=== PATIENT | male | born 1960 | race African-American/Black ===

== ENCOUNTER 2019-01-04 04:32 | Emergency (ER) | payer MEDICAID, OTHER ==
[~2019-01-04] VITALS: Ht 188 cm; Wt 47.6 kg
[2019-01-04] MEDS ORDERED: ALUM & MAG HYDROX-SIMETH LIQ(MAALOX) 30 ML PO ONE (05:00)
[2019-01-04 05:38] LABS: Basophils # (auto) 0 uL; Basophils % (auto) 1.1 % (0.0-2.0); Eosinophils # (auto) 0.2 uL; Eosinophils % (auto) 3.7 % (0.0-7.0); Hematocrit 39.2 % (41.0-53.0); Lymphocytes # (auto) 1.8 uL; Lymphocytes % (auto) 41.3 % (10.0-50.0); Mean Corpuscular Hemoglobin 27.9 pg (28.0-32.0); Mean Corpuscular Hgb Conc. 33.2 g/dL (32.0-36.0); Mean Corpuscular Volume 83.9 fL (80.0-100.0); Monocytes # (auto) 0.3 uL; Monocytes % (auto) 6.8 % (0.0-12.0); Neutrophils % (auto) 47.1 % (37.0-80.0); Nucleated Red Blood Cells % 0.1 %; Platelet Count (auto) 144 10^3/uL (140-450); Red Blood Cells 4.67 10^6/uL (4.5-5.90); Red Cell Distribution Width 15.7 % (11.8-14.3); White Blood Cell 4.3 10^3/uL (4.4-10.8)
[2019-01-04 05:52] LABS: Albumin 3.5 g/dL (3.4-5.0); Anion Gap 4 (5-15); Blood Urea Nitrogen 16 mg/dL (7-18); Calcium 8.3 mg/dL (8.5-10.1); Carbon Dioxide 28 mmol/L (21-32); Chloride 110 mmol/L (98-107); Glucose 106 mg/dL (74-106); Potassium 4.2 mmol/L (3.5-5.1); Sodium 142 mmol/L (136-145)
[2019-01-04 05:54] LABS: BUN/Creatinine Ratio 15.8; GFR African American 98 mL/min; GFR Non-African American 81 mL/min
[2019-01-04 05:59] LABS: Alanine Aminotransferase 126 U/L (16-61); Alkaline Phosphatase 116 U/L (45-117); Aspartate Aminotransferase 126 U/L (15-37); Bilirubin, Total 0.1 mg/dL (0.2-1.0); Total Protein 6.4 g/dL (6.4-8.2)
[2019-01-04] MEDS ORDERED: HYDROmorphone HCL 2 MG/ML VL IV ONE (08:00)
[2019-01-04] MEDS ORDERED: ONDANSETRON HCL 4 MG/2 ML VIAL IV ONE (08:00)
[2019-01-04 08:45] LABS: Basophils # (auto) 0 uL; Basophils % (auto) 1.2 % (0.0-2.0); Eosinophils # (auto) 0.1 uL; Hematocrit 39.5 % (41.0-53.0); Hemoglobin 12.9 g/dL (13.5-17.5); Lymphocytes # (auto) 1.3 uL; Lymphocytes % (auto) 37.6 % (10.0-50.0); Mean Corpuscular Hemoglobin 27.6 pg (28.0-32.0); Mean Corpuscular Hgb Conc. 32.7 g/dL (32.0-36.0); Mean Corpuscular Volume 84.3 fL (80.0-100.0); Monocytes # (auto) 0.3 uL; Monocytes % (auto) 7.6 % (0.0-12.0); Neutrophils # (auto) 1.7 uL; Neutrophils % (auto) 50.6 % (37.0-80.0); Nucleated Red Blood Cells % 0.2 %; Platelet Count (auto) 143 10^3/uL (140-450); Red Blood Cells 4.68 10^6/uL (4.5-5.90); White Blood Cell 3.4 10^3/uL (4.4-10.8)
[2019-01-04 08:54] LABS: Albumin 3.4 g/dL (3.4-5.0); BUN/Creatinine Ratio 15.6; Calcium 8.1 mg/dL (8.5-10.1); Magnesium 2.3 mg/dL (1.6-2.6); Potassium 4.6 mmol/L (3.5-5.1)
[2019-01-04 08:57] LABS: Bilirubin, Total 0.3 mg/dL (0.2-1.0); Total Protein 6.3 g/dL (6.4-8.2)
[2019-01-04 09:03] LABS: Partial Thromboplastin Time 25.9 sec (23.64-32.05)
[2019-01-04 10:03] VITALS: BP 109/80
== END 2019-01-04 10:39 | disposition home or self-care (01) ==
LOC: EDBD 04:32 → ER 04:43 → EDBD 04:43 → ER 10:39
DX: R16.1 Splenomegaly, not elsewhere classified (principal); R10.13 Epigastric pain; I10 Essential (primary) hypertension; Z95.0 Presence of cardiac pacemaker
CPT/HCPCS: 36415; 74176; 80053; 82150; 83690; 83735; 84484; 85025; 85610; 85730; 93005; 94761; 96374; 96375; 99284; J1170; J2405

== ENCOUNTER 2019-02-01 02:37 | Emergency (ER) | payer MEDICAID ==
[~2019-02-01] VITALS: Ht 193 cm; Wt 98.9 kg
[2019-02-01 03:52] LABS: Basophils # (auto) 0 uL; Basophils % (auto) 0.8 % (0.0-2.0); Eosinophils # (auto) 0.1 uL; Eosinophils % (auto) 2.7 % (0.0-7.0); Hematocrit 36.8 % (41.0-53.0); Hemoglobin 12.3 g/dL (13.5-17.5); Lymphocytes # (auto) 1.8 uL; Mean Corpuscular Hemoglobin 28.1 pg (28.0-32.0); Mean Corpuscular Hgb Conc. 33.3 g/dL (32.0-36.0); Mean Corpuscular Volume 84.2 fL (80.0-100.0); Monocytes # (auto) 0.4 uL; Monocytes % (auto) 7.5 % (0.0-12.0); Neutrophils # (auto) 2.5 uL; Nucleated Red Blood Cells % 0.1 %; Platelet Count (auto) 144 10^3/uL (140-450); Red Blood Cells 4.38 10^6/uL (4.5-5.90); Red Cell Distribution Width 16.3 % (11.8-14.3); White Blood Cell 4.9 10^3/uL (4.4-10.8)
[2019-02-01 04:15] LABS: Amylase 75 U/L (25-115); Lipase 268 U/L (73-393)
[2019-02-01 04:16] LABS: Alanine Aminotransferase 70 U/L (16-61); Albumin 3.2 g/dL (3.4-5.0); Anion Gap 5 (5-15); Aspartate Aminotransferase 37 U/L (15-37); BUN/Creatinine Ratio 13.7; Blood Urea Nitrogen 14 mg/dL (7-18); Calcium 7.7 mg/dL (8.5-10.1); Carbon Dioxide 26 mmol/L (21-32); Chloride 115 mmol/L (98-107); GFR African American 96 mL/min; GFR Non-African American 80 mL/min; Glucose 103 mg/dL (74-106); Potassium 4.3 mmol/L (3.5-5.1); Sodium 146 mmol/L (136-145)
[2019-02-01 04:21] LABS: Alkaline Phosphatase 120 U/L (45-117); Bilirubin, Total 0.2 mg/dL (0.2-1.0); Total Protein 6.1 g/dL (6.4-8.2)
[2019-02-01 05:09] LABS: Urine Bacteria FEW /hpf (None Seen); Urine Blood Negative /uL (Negative); Urine Specific Gravity 1.025 (1.001-1.035); Urine WBC 23 /hpf (0 - 3)
[2019-02-01] MEDS ORDERED: ONDANSETRON HCL 4 MG/2 ML VIAL IV ONE (07:00)
[2019-02-01] MEDS ORDERED: MORPHINE SULFATE 4 MG/ML SYR/VIAL IV ONE (07:00)
[2019-02-01] MEDS ORDERED: SODIUM CHLORIDE 0.9% 1,000 ML IV ONE (07:00)
[2019-02-01] MEDS ORDERED: DIPHENOXYLATE W/ATROPINE 2.5 MG TAB PO ONE (07:00)
[2019-02-01 07:40] VITALS: BP 124/91
[2019-02-01] MEDS ORDERED: cefTRIAXone 1GM/50ML D5W 50 ML IV ONE (08:00)
== END 2019-02-01 08:27 | disposition home or self-care (01) ==
LOC: EDBD 02:37 → ER 02:43
DX: K52.9 Noninfective gastroenteritis and colitis, unspecified (principal); N39.0 Urinary tract infection, site not specified; I10 Essential (primary) hypertension; Z95.0 Presence of cardiac pacemaker
CPT/HCPCS: 36415; 36600; 74176; 80053; 81001; 82150; 82805; 83605; 83690; 83880; 84484; 85025; 93005; 96361; 96365; 96375; 99284; J0696; J2270; J2405; J7030

== ENCOUNTER 2019-02-02 10:44 | Emergency (ER) | payer MEDICAID ==
[~2019-02-02] VITALS: Ht 193 cm; Wt 98.9 kg
[2019-02-02] MEDS ORDERED: SODIUM CHLORIDE 0.9% 500 ML IVB ONE (11:05)
[2019-02-02] MEDS ORDERED: ONDANSETRON HCL 4 MG/2 ML VIAL IV ONE (11:15)
[2019-02-02] MEDS ORDERED: HYDROmorphone HCL 2 MG/ML VL IV ONE (11:15)
[2019-02-02 11:28] LABS: Basophils # (auto) 0 uL; Eosinophils # (auto) 0.1 uL; Eosinophils % (auto) 1.2 % (0.0-7.0); Hematocrit 38.9 % (41.0-53.0); Hemoglobin 12.9 g/dL (13.5-17.5); Lymphocytes # (auto) 1.5 uL; Lymphocytes % (auto) 35.1 % (10.0-50.0); Mean Corpuscular Hgb Conc. 33.1 g/dL (32.0-36.0); Mean Corpuscular Volume 84.7 fL (80.0-100.0); Monocytes # (auto) 0.5 uL; Monocytes % (auto) 11.1 % (0.0-12.0); Neutrophils # (auto) 2.3 uL; Neutrophils % (auto) 51.6 % (37.0-80.0); Nucleated Red Blood Cells % 0.1 %; Platelet Count (auto) 147 10^3/uL (140-450); Red Blood Cells 4.59 10^6/uL (4.5-5.90); Red Cell Distribution Width 15.6 % (11.8-14.3); White Blood Cell 4.4 10^3/uL (4.4-10.8)
[2019-02-02 12:06] LABS: Albumin 3.3 g/dL (3.4-5.0); Calcium 8.3 mg/dL (8.5-10.1); Potassium 4.4 mmol/L (3.5-5.1)
[2019-02-02 12:11] LABS: BUN/Creatinine Ratio 10.4; Bilirubin, Total 0.5 mg/dL (0.2-1.0); Total Protein 6.4 g/dL (6.4-8.2)
[2019-02-02 15:13] VITALS: BP 144/92
== END 2019-02-02 15:13 | disposition home or self-care (01) ==
LOC: ER 10:44
DX: D17.9 Benign lipomatous neoplasm, unspecified (principal); F17.210 Nicotine dependence, cigarettes, uncomplicated; J45.909 Unspecified asthma, uncomplicated; I10 Essential (primary) hypertension; I25.2 Old myocardial infarction; Z95.0 Presence of cardiac pacemaker
CPT/HCPCS: 36415; 80053; 82150; 83690; 85025; 94761; 96360; 99283; J7040

== ENCOUNTER 2019-02-03 01:31 | Emergency (ER) | payer MEDICAID ==
[~2019-02-03] VITALS: Ht 190.5 cm; Wt 105.7 kg
[2019-02-03 02:34] LABS: Basophils # (auto) 0 uL; Basophils % (auto) 0.8 % (0.0-2.0); Eosinophils # (auto) 0.1 uL; Eosinophils % (auto) 1.6 % (0.0-7.0); Hematocrit 39.3 % (41.0-53.0); Hemoglobin 12.9 g/dL (13.5-17.5); Lymphocytes # (auto) 1.5 uL; Lymphocytes % (auto) 28.8 % (10.0-50.0); Mean Corpuscular Hemoglobin 27.9 pg (28.0-32.0); Mean Corpuscular Hgb Conc. 32.8 g/dL (32.0-36.0); Mean Corpuscular Volume 85.3 fL (80.0-100.0); Monocytes # (auto) 0.6 uL; Monocytes % (auto) 11.6 % (0.0-12.0); Neutrophils % (auto) 57.2 % (37.0-80.0); Nucleated Red Blood Cells % 0.2 %; Platelet Count (auto) 152 10^3/uL (140-450); Red Blood Cells 4.61 10^6/uL (4.5-5.90); Red Cell Distribution Width 15.8 % (11.8-14.3); White Blood Cell 5.2 10^3/uL (4.4-10.8)
[2019-02-03 02:42] LABS: Albumin 3.4 g/dL (3.4-5.0); BUN/Creatinine Ratio 11.5; Calcium 7.9 mg/dL (8.5-10.1); Potassium 3.9 mmol/L (3.5-5.1)
[2019-02-03 02:45] LABS: Bilirubin, Total 0.3 mg/dL (0.2-1.0); Total Protein 6.3 g/dL (6.4-8.2)
[2019-02-03 04:58] VITALS: BP 128/93
[2019-02-03 06:38] LABS: Albumin 3.4 g/dL (3.4-5.0)
[2019-02-03 06:54] LABS: Bilirubin, Direct 0.1 mg/dL (0-0.2); Bilirubin, Total 0.3 mg/dL (0.2-1.0); Total Protein 6.1 g/dL (6.4-8.2)
== END 2019-02-03 04:56 | disposition home or self-care (01) ==
LOC: ER 01:36
DX: K21.9 Gastro-esophageal reflux disease without esophagitis (principal); K75.9 Inflammatory liver disease, unspecified; K29.70 Gastritis, unspecified, without bleeding; J45.909 Unspecified asthma, uncomplicated; I10 Essential (primary) hypertension; I25.2 Old myocardial infarction; F17.210 Nicotine dependence, cigarettes, uncomplicated; Z95.0 Presence of cardiac pacemaker
CPT/HCPCS: 36415; 80053; 80076; 83605; 85025; 93005

== ENCOUNTER 2019-02-06 01:52 | Inpatient (IN) | payer MEDICAID ==
[~2019-02-06] VITALS: Ht 193 cm; Wt 101.1 kg
[2019-02-06 03:59] LABS: Basophils # (auto) 0 uL; Eosinophils # (auto) 0.1 uL; Hemoglobin 13.1 g/dL (13.5-17.5); Lymphocytes # (auto) 1.6 uL; Lymphocytes % (auto) 35.1 % (10.0-50.0); Mean Corpuscular Hemoglobin 27.7 pg (28.0-32.0); Mean Corpuscular Hgb Conc. 32.7 g/dL (32.0-36.0); Mean Corpuscular Volume 84.9 fL (80.0-100.0); Monocytes # (auto) 0.4 uL; Monocytes % (auto) 9.5 % (0.0-12.0); Neutrophils # (auto) 2.4 uL; Neutrophils % (auto) 52.4 % (37.0-80.0); Nucleated Red Blood Cells % 0.8 %; Platelet Count (auto) 177 10^3/uL (140-450); Red Blood Cells 4.71 10^6/uL (4.5-5.90); White Blood Cell 4.6 10^3/uL (4.4-10.8)
[2019-02-06 04:09] LABS: Urine Bacteria FEW /hpf (None Seen); Urine Blood Negative /uL (Negative); Urine WBC 1 /hpf (0 - 3)
[2019-02-06 04:15] LABS: Albumin 3.2 g/dL (3.4-5.0); Calcium 7.7 mg/dL (8.5-10.1); Potassium 4.2 mmol/L (3.5-5.1)
[2019-02-06 04:20] LABS: Bilirubin, Total 0.3 mg/dL (0.2-1.0); Total Protein 6.3 g/dL (6.4-8.2)
[2019-02-06] MEDS ORDERED: FUROSEMIDE 40 MG/4 ML VIAL IV ONE ×2 (08:00→09:00)
[2019-02-06] MEDS ORDERED: MORPHINE SULF INJ 2 MG/ML SYRINGE 1ML IV PRN ×2 (09:00)
[2019-02-06] MEDS ORDERED: HYDROcodone-ACET 5/325MG TAB PO PRN (09:00)
[2019-02-06] MEDS ORDERED: NITROGLYCERIN 0.4 MG SL TAB SL PRN (09:00)
[2019-02-06] MEDS ORDERED: ACETAMINOPHEN 500 MG TAB PO PRN (09:00)
[2019-02-06] MEDS ORDERED: ONDANSETRON HCL 4 MG/2 ML VIAL IV PRN (09:00)
[2019-02-06] MEDS ORDERED: hydrALAZINE HCL 20 MG/ML VL IV PRN (09:00)
[2019-02-06 09:28] LABS: Alcohol, Urine < 3.0 mg/dL (0-5); Amphetamine Screen, Urine NEGATIVE (NEGATIVE); Barbiturate Scree,Urine NEGATIVE (NEGATIVE); Benzodiazephine Screen, Urine NEGATIVE (NEGATIVE); Cannabinoid Screen, Urine NEGATIVE (NEGATIVE); Cocaine Screen, Urine NEGATIVE (NEGATIVE); Opiate Scree,Urine NEGATIVE (NEGATIVE); Phencyclidine Screen, Urine NEGATIVE (NEGATIVE)
[2019-02-06 09:42] VITALS: BP 139/69
[2019-02-06] MEDS ORDERED: CARVEDILOL 3.125 MG TAB PO SCH (10:00)
[2019-02-06] MEDS: LISINOPRIL 10 MG TAB PO SCH (10:19)
[2019-02-06] MEDS: FAMOTIDINE 20 MG TAB PO SCH (10:20)
--- NOTE | 2019-02-06 11:00 | NUR ---
Patient stated does not have current list of home medication with him. Stated "Ill have my mom bring it in"
--- NOTE | 2019-02-06 11:00 | NUR ---
Received patient form ER. Assumed care of patient, awake and alert. No S/S of distress/SOB or pain. Bed in lowest position, breaks locked, side rails up x2, call light with in range. Instructed on POC and to call for assist PRN, will continue to monitor for changes Q1hr and PRN.
[2019-02-06] MEDS: ALBUTEROL SULF 2.5 MG/0.5ML(0.5%) NEB SOLN NEB SCH ×2 (11:41→19:46)
[2019-02-06] MEDS: IPRATROPIUM BROM 0.5 MG/2.5ML INH SOL NEB SCH ×2 (11:41→19:46)
[2019-02-06 13:00] VITALS: BP 118/88
[2019-02-06 17:00] VITALS: BP 121/85
--- NOTE | 2019-02-06 17:00 | NUR ---
Family member brought in home medications. Documented and med rec updated. Medications returned to family member and medications sent home.
[2019-02-06] MEDS ORDERED: IBUP800T24 PO (17:15)
[2019-02-06] MEDS ORDERED: DIPH2.5T16 PO (17:15)
[2019-02-06] MEDS ORDERED: CEPH500C PO (17:15)
[2019-02-06] MEDS ORDERED: MET500T GT (17:15)
[2019-02-06] MEDS ORDERED: OMEP20TA PO (17:15)
[2019-02-06] MEDS ORDERED: BENA10TA9 PO (17:15)
[2019-02-06] MEDS ORDERED: DIAZ10TA3 PO (17:15)
[2019-02-06] MEDS ORDERED: ASPI325T25 PO (17:15)
--- NOTE | 2019-02-06 17:46 | NUR ---
PATIENT AMBULATING HALLWAYS NO S/S OF DISTRESS NO SOB NOTED.
--- NOTE | 2019-02-06 18:20 | NUR ---
Received call from Dr. Lane new orders received, see EMR for orders.
[2019-02-06] MEDS: FUROSEMIDE 40 MG/4 ML VIAL IV SCH (18:56)
--- NOTE | 2019-02-06 19:26 | NUR ---
Opening Shift Note Assumed care of patient, awake and alert x 4. No S/S of distress/SOB. Bed is in lowest position and locked. Call light within reach. Board updated. Tele box number matches monitor and leads are in correct placement. Instructed on POC and to call for assist PRN, will continue to monitor for changes Q1hr and PRN.
--- NOTE | 2019-02-06 21:56 | NUR ---
Jeffrey hospitalist because patient had sudden cramping pain in his left hip/thigh and in his left side. Patient was given Lasix 40 mg IV for the first time at 1830. Patient's current potassium is 4.2. Patient reports no chest pressure or pain. Tele monitor shows patient has normal sinus rhythm with a depressed T wave and slight bundle branch block. Patient has BMP scheduled for 0500 in the AM.
[2019-02-06 22:00] VITALS: BP 125/72
[2019-02-06] MEDS: CARVEDILOL 3.125 MG TAB PO SCH (22:14)
[2019-02-06] MEDS: ATORVASTATIN 20 MG TAB PO SCH (22:14)
--- NOTE | 2019-02-06 22:35 | NUR ---
Patient's cramping decreased to a comfortable level for patient, though it has not completely gone away. Will continue to monitor.
--- NOTE | 2019-02-06 23:15 | NUR ---
BMP and Magnesium tests were all WNL except for slightly elevated BUN. Will continue to monitor.l
[2019-02-06 23:44] LABS: Calcium 8.9 mg/dL (8.5-10.1); Magnesium 2.2 mg/dL (1.6-2.6); Potassium 4.2 mmol/L (3.5-5.1)
[2019-02-06 23:45] LABS: BUN/Creatinine Ratio 18.5
[2019-02-07 05:37] VITALS: BP 133/56
[2019-02-07 05:56] LABS: Basophils # (auto) 0 uL; Eosinophils # (auto) 0.2 uL; Eosinophils % (auto) 4.2 % (0.0-7.0); Hematocrit 39.7 % (41.0-53.0); Hemoglobin 13.2 g/dL (13.5-17.5); Lymphocytes # (auto) 1.4 uL; Lymphocytes % (auto) 30.1 % (10.0-50.0); Mean Corpuscular Hemoglobin 28.1 pg (28.0-32.0); Mean Corpuscular Hgb Conc. 33.2 g/dL (32.0-36.0); Mean Corpuscular Volume 84.6 fL (80.0-100.0); Monocytes # (auto) 0.4 uL; Monocytes % (auto) 9.9 % (0.0-12.0); Neutrophils # (auto) 2.5 uL; Neutrophils % (auto) 54.8 % (37.0-80.0); Nucleated Red Blood Cells % 0.2 %; Platelet Count (auto) 184 10^3/uL (140-450); Red Cell Distribution Width 15.6 % (11.8-14.3); White Blood Cell 4.6 10^3/uL (4.4-10.8)
[2019-02-07] MEDS: FUROSEMIDE 40 MG/4 ML VIAL IV SCH ×2 (06:06→18:14)
[2019-02-07 06:08] LABS: INR 1.09 (0.9-1.15); Partial Thromboplastin Time 25.6 sec (23.64-32.05)
[2019-02-07 06:13] LABS: Calcium 8.6 mg/dL (8.5-10.1); Potassium 4.2 mmol/L (3.5-5.1)
[2019-02-07 06:17] LABS: BUN/Creatinine Ratio 18.6
[2019-02-07] MEDS: ALBUTEROL SULF 2.5 MG/0.5ML(0.5%) NEB SOLN NEB SCH ×3 (06:18→18:31)
[2019-02-07] MEDS: IPRATROPIUM BROM 0.5 MG/2.5ML INH SOL NEB SCH ×3 (06:18→18:31)
--- NOTE | 2019-02-07 07:30 | NUR ---
OPENING SHIFT NOTE: Received report from NOC RNBonifacio. Assumed care of patient. Patient resting in bed, denies pain. Bed in lowest position, rails x2 up and call light within reach. Updated on plan of care. Will continue to monitor.
[2019-02-07 09:00] VITALS: BP 130/89
--- NOTE | 2019-02-07 10:30 | NUR ---
MD: Dr Nuñez to see patient.
[2019-02-07] MEDS: LISINOPRIL 10 MG TAB PO SCH (10:54)
[2019-02-07] MEDS: CARVEDILOL 3.125 MG TAB PO SCH ×2 (10:55→21:49)
[2019-02-07] MEDS: FAMOTIDINE 20 MG TAB PO SCH (10:55)
[2019-02-07 13:00] VITALS: BP 118/83
[2019-02-07 17:00] VITALS: BP 118/70
--- NOTE | 2019-02-07 19:09 | NUR ---
CLOSING SHIFT NOTE: Report given to NOC Nikky KING. Endorsed care of patient.
--- NOTE | 2019-02-07 19:30 | NUR ---
Assumed care of patient who is A&O x4. Currently on RA; denies SOB or pain at this time. No distress noted. Patient is ambulatory without the use of assistive devices at baseline. 20 gauge IV in right AC intact and patent. Flushed with 10ml NS. POC discussed with patient who verbalizes understanding. Encouraged to call for assistance when needed. Bed is in low locked position with side rails up x2. Will continue to monitor for changes PRN.
[2019-02-07 20:00] VITALS: BP 113/71
[2019-02-07] MEDS: ATORVASTATIN 20 MG TAB PO SCH (21:51)
[2019-02-07 22:04] VITALS: BP 113/71
--- NOTE | 2019-02-07 23:30 | NUR ---
ROUNDS Patient is awake and alert, sitting on edge of bed. No distress noted. Patient reports intermittent leg cramps when getting up. All electrolytes are WNL. Next CMP to be drawn at 0500. Will notify MD. Encouraged patient to call for assistance when needed. Verbalizes understanding.
--- NOTE | 2019-02-08 01:45 | NUR ---
ROUNDS Patient resting in bed on left side with eyes closed. Respirations are even and non-labored. No distress noted.
--- NOTE | 2019-02-08 02:46 | NUR ---
Leg cramps Patient reports intense cramping in left calf. Patient instructed to stretch foot upwards. Reports some relief in cramping. Declines pain medication at this time. Heat pack provided. Patient is currently on Lasix 40mg BID. Sodium, Potassium, Calcium and magnesium are all WNL. CMP to be drawn at 0500 today. Will await results. Continuing care.
--- NOTE | 2019-02-08 04:50 | NUR ---
Lab at bedside.
[2019-02-08 05:54] VITALS: BP 112/78
[2019-02-08 06:04] LABS: Basophils # (auto) 0 uL; Basophils % (auto) 0.8 % (0.0-2.0); Eosinophils # (auto) 0.2 uL; Eosinophils % (auto) 3.1 % (0.0-7.0); Hematocrit 44.4 % (41.0-53.0); Hemoglobin 14.6 g/dL (13.5-17.5); Lymphocytes # (auto) 1.5 uL; Mean Corpuscular Hemoglobin 27.7 pg (28.0-32.0); Mean Corpuscular Hgb Conc. 32.9 g/dL (32.0-36.0); Mean Corpuscular Volume 84.2 fL (80.0-100.0); Monocytes # (auto) 0.6 uL; Monocytes % (auto) 11.2 % (0.0-12.0); Neutrophils # (auto) 2.9 uL; Neutrophils % (auto) 55.9 % (37.0-80.0); Nucleated Red Blood Cells % 0.2 %; Platelet Count (auto) 201 10^3/uL (140-450); Red Blood Cells 5.27 10^6/uL (4.5-5.90); Red Cell Distribution Width 16.1 % (11.8-14.3); White Blood Cell 5.3 10^3/uL (4.4-10.8)
[2019-02-08 06:21] LABS: Anion Gap 6 (5-15); BUN/Creatinine Ratio 20.9; Blood Urea Nitrogen 24 mg/dL (7-18); Calcium 8.9 mg/dL (8.5-10.1); Carbon Dioxide 30 mmol/L (21-32); Chloride 104 mmol/L (98-107); GFR African American 84 mL/min; GFR Non-African American 69 mL/min; Glucose 133 mg/dL (74-106); Potassium 4.1 mmol/L (3.5-5.1); Sodium 140 mmol/L (136-145)
[2019-02-08] MEDS: FUROSEMIDE 40 MG/4 ML VIAL IV SCH (06:39)
--- NOTE | 2019-02-08 06:39 | NUR ---
Patient requesting ice water. Reinforced education on fluid restriction. Patient verbalizes understanding.
--- NOTE | 2019-02-08 06:59 | NUR ---
Care endorsed to Day shift nurse. No distress noted at this time.
[2019-02-08] MEDS: ALBUTEROL SULF 2.5 MG/0.5ML(0.5%) NEB SOLN NEB SCH (07:09)
[2019-02-08] MEDS: IPRATROPIUM BROM 0.5 MG/2.5ML INH SOL NEB SCH (07:09)
--- NOTE | 2019-02-08 08:00 | NUR ---
Opening Shift Note Assumed care of patient, awake and alert. No S/S of distress/SOB or pain. Instructed on POC and to callfor assist PRN, will continue to monitor for changes Q1hr and PRN.
[2019-02-08 08:42] VITALS: BP 109/72
--- NOTE | 2019-02-08 09:30 | NUR ---
Spoke with Dr. Wells, updated on the current status of patient. Per Dr. Wells, he will see patient this afternoon. Addendum: 02/08/19 at 1150 by Irving Tillman RN error in documentation.
[2019-02-08] MEDS: LISINOPRIL 10 MG TAB PO SCH (09:40)
[2019-02-08] MEDS: CARVEDILOL 3.125 MG TAB PO SCH (09:40)
[2019-02-08] MEDS: FAMOTIDINE 20 MG TAB PO SCH (09:40)
--- NOTE | 2019-02-08 11:40 | NUR ---
Dr. Edmondson at bedside, patient is advised. Patient is for discharge today.
[2019-02-08 13:00] VITALS: BP 103/48
[2019-02-08 13:02] VITALS: BP 112/64
--- NOTE | 2019-02-08 13:37 | NUR ---
Discharge instructions given as ordered. Encourage to follow up with PMD José Miguel Verduzco in 10-14 days and cardiology-Dr. Lane in 3-4 weeks as instructed. Patient instructed to get referral from PMD for cardiology appointment. All questions and concerns addressed. Patient verbalized understanding. Medication reconciliation form completed and copy given to patient. IV removed with catheter intact, pressure dressing applied. Telemetry unit returned to ICU. Patient taken to vehicle via wheelchair with all personal belongings, accompanied by staff and family member. No distress noted at time of departure.
== END 2019-02-08 13:37 | disposition home or self-care (01) | DRG 194 ==
LOC: ER 01:54 → TELE 01:55 → TELE-CENTR 11:18
PROVIDERS: ADMIT Nurse Practitioner Acute Care; ATTEND Internal Medicine Pulmonary Disease
DX: I11.0 Hypertensive heart disease with heart failure (principal); I27.20 Pulmonary hypertension, unspecified; R65.10 Systemic inflammatory response syndrome (SIRS) of non-infectious origin without acute organ dysfunction; E44.1 Mild protein-calorie malnutrition; R16.2 Hepatomegaly with splenomegaly, not elsewhere classified; I50.43 Acute on chronic combined systolic (congestive) and diastolic (congestive) heart failure; J44.9 Chronic obstructive pulmonary disease, unspecified; D64.9 Anemia, unspecified; Z95.810 Presence of automatic (implantable) cardiac defibrillator; E78.5 Hyperlipidemia, unspecified; J98.11 Atelectasis; Z68.27 Body mass index [BMI] 27.0-27.9, adult; F17.210 Nicotine dependence, cigarettes, uncomplicated; I50.82 Biventricular heart failure; K29.70 Gastritis, unspecified, without bleeding; K40.90 Unilateral inguinal hernia, without obstruction or gangrene, not specified as recurrent; N40.0 Benign prostatic hyperplasia without lower urinary tract symptoms
CPT/HCPCS: 36415; 71045; 74176; 80048; 80053; 80307; 81001; 82150; 83690; 83735; 83880; 84484; 85025; 85610; 85730; 86141; 87086; 93005; 93306; 94640; 96374; G0378

== ENCOUNTER 2019-03-05 10:29 | Emergency (ER) | payer MEDICAID ==
[~2019-03-05] VITALS: Ht 193 cm; Wt 108.0 kg
[~2019-03-05 10:29] MED LIST: ASPI325T25 PO; CEPH500C PO; DIAZ10TA3 PO; DIPH2.5T16 PO; IBUP800T24 PO; MET500T GT; OMEP20TA PO
[2019-03-05 11:07] LABS: Basophils # (auto) 0 uL; Basophils % (auto) 0.8 % (0.0-2.0); Eosinophils # (auto) 0.1 uL; Hematocrit 41.2 % (41.0-53.0); Hemoglobin 13.5 g/dL (13.5-17.5); Lymphocytes # (auto) 1.6 uL; Lymphocytes % (auto) 43.9 % (10.0-50.0); Mean Corpuscular Hemoglobin 27.7 pg (28.0-32.0); Mean Corpuscular Hgb Conc. 32.7 g/dL (32.0-36.0); Mean Corpuscular Volume 84.7 fL (80.0-100.0); Monocytes # (auto) 0.4 uL; Monocytes % (auto) 10.1 % (0.0-12.0); Neutrophils # (auto) 1.5 uL; Neutrophils % (auto) 42.2 % (37.0-80.0); Nucleated Red Blood Cells % 0.3 %; Platelet Count (auto) 145 10^3/uL (140-450); Red Blood Cells 4.86 10^6/uL (4.5-5.90); Red Cell Distribution Width 15.4 % (11.8-14.3); White Blood Cell 3.6 10^3/uL (4.4-10.8)
[2019-03-05 11:26] LABS: Albumin 3.3 g/dL (3.4-5.0); Anion Gap 5 (5-15); BUN/Creatinine Ratio 16.3; Blood Urea Nitrogen 17 mg/dL (7-18); Calcium 8.2 mg/dL (8.5-10.1); Carbon Dioxide 25 mmol/L (21-32); Chloride 111 mmol/L (98-107); GFR African American 94 mL/min; GFR Non-African American 78 mL/min; Glucose 98 mg/dL (74-106); Potassium 4.4 mmol/L (3.5-5.1); Sodium 141 mmol/L (136-145)
[2019-03-05] MEDS ORDERED: HYDROmorphone HCL 2 MG TAB PO ONE (11:30)
[2019-03-05] MEDS ORDERED: ONDANSETRON ODT 4 MG TAB PO ONE (11:30)
[2019-03-05 11:38] LABS: INR 1.07 (0.9-1.15); Partial Thromboplastin Time 26.6 sec (23.64-32.05)
[2019-03-05 11:50] LABS: Alanine Aminotransferase 141 U/L (16-61); Alkaline Phosphatase 95 U/L (45-117); Aspartate Aminotransferase 74 U/L (15-37); Bilirubin, Total 0.5 mg/dL (0.2-1.0); Total Protein 6.6 g/dL (6.4-8.2)
[2019-03-05 12:06] VITALS: BP 126/94
== END 2019-03-05 13:54 | disposition home or self-care (01) ==
LOC: ER 10:31
DX: R16.1 Splenomegaly, not elsewhere classified (principal); G89.29 Other chronic pain; I10 Essential (primary) hypertension; I25.2 Old myocardial infarction; F17.210 Nicotine dependence, cigarettes, uncomplicated; Z95.0 Presence of cardiac pacemaker; Z79.82 Long term (current) use of aspirin; Z79.899 Other long term (current) drug therapy
CPT/HCPCS: 36415; 71045; 80053; 83880; 84484; 85025; 85610; 85730; 93005; 99284; Q0162

== ENCOUNTER 2019-03-20 19:50 | Inpatient (IN) | payer MEDICAID ==
[~2019-03-20] VITALS: Ht 190.5 cm; Wt 97.0 kg
[2019-03-20 20:38] LABS: Basophils # (auto) 0.1 uL; Eosinophils # (auto) 0.1 uL; Eosinophils % (auto) 3.5 % (0.0-7.0); Hematocrit 40.7 % (41.0-53.0); Hemoglobin 13.3 g/dL (13.5-17.5); Lymphocytes # (auto) 1.5 uL; Lymphocytes % (auto) 36.5 % (10.0-50.0); Mean Corpuscular Hemoglobin 27.6 pg (28.0-32.0); Mean Corpuscular Hgb Conc. 32.8 g/dL (32.0-36.0); Mean Corpuscular Volume 84.3 fL (80.0-100.0); Monocytes # (auto) 0.4 uL; Monocytes % (auto) 10.5 % (0.0-12.0); Neutrophils % (auto) 47.5 % (37.0-80.0); Nucleated Red Blood Cells % 0.1 %; Platelet Count (auto) 174 10^3/uL (140-450); Red Blood Cells 4.83 10^6/uL (4.5-5.90); Red Cell Distribution Width 16.1 % (11.8-14.3); White Blood Cell 4.2 10^3/uL (4.4-10.8)
[2019-03-20 20:59] LABS: Alanine Aminotransferase 56 U/L (16-61); Albumin 3.6 g/dL (3.4-5.0); Anion Gap 7 (5-15); Aspartate Aminotransferase 28 U/L (15-37); BUN/Creatinine Ratio 11.7; Blood Urea Nitrogen 13 mg/dL (7-18); Calcium 7.8 mg/dL (8.5-10.1); Carbon Dioxide 24 mmol/L (21-32); Chloride 111 mmol/L (98-107); GFR African American 87 mL/min; GFR Non-African American 72 mL/min; Glucose 104 mg/dL (74-106); Magnesium 2.1 mg/dL (1.6-2.6); Potassium 4.1 mmol/L (3.5-5.1); Sodium 142 mmol/L (136-145)
[2019-03-20 21:04] LABS: Alkaline Phosphatase 108 U/L (45-117); Bilirubin, Total 0.5 mg/dL (0.2-1.0); Total Protein 6.5 g/dL (6.4-8.2)
[2019-03-20] MEDS ORDERED: MORPHINE SULFATE 4 MG/ML SYR/VIAL IV ONE (22:45)
[2019-03-20] MEDS ORDERED: ONDANSETRON HCL 4 MG/2 ML VIAL IV ONE (22:45)
[2019-03-20 23:27] LABS: Alcohol, Urine < 3.0 mg/dL (0-5); Amphetamine Screen, Urine NEGATIVE (NEGATIVE); Barbiturate Scree,Urine NEGATIVE (NEGATIVE); Benzodiazephine Screen, Urine NEGATIVE (NEGATIVE); Cannabinoid Screen, Urine NEGATIVE (NEGATIVE); Cocaine Screen, Urine NEGATIVE (NEGATIVE); Opiate Scree,Urine NEGATIVE (NEGATIVE); Phencyclidine Screen, Urine NEGATIVE (NEGATIVE)
[2019-03-21] VITALS (7 sets, daily range): BP systolic 113–146; BP diastolic 71–89
[2019-03-21] MEDS ORDERED: FUROSEMIDE 20 MG/2 ML VIAL IV ONE (01:00)
[2019-03-21] MEDS ORDERED: TEMAZEPAM 15 MG CAP PO PRN (01:15)
[2019-03-21] MEDS ORDERED: HYDROcodone-ACET 5/325MG TAB PO PRN (01:15)
[2019-03-21] MEDS ORDERED: ONDANSETRON HCL 4 MG/2 ML VIAL IV PRN (01:15)
[2019-03-21] MEDS ORDERED: ACETAMINOPHEN 325 MG TAB PO PRN (01:15)
[2019-03-21] MEDS ORDERED: MORPHINE SULF INJ 2 MG/ML SYRINGE 1ML IV PRN (01:30)
[2019-03-21] MEDS ORDERED: NITROGLYCERIN 0.4 MG SL TAB SL PRN (01:30)
--- NOTE | 2019-03-21 02:40 | NUR ---
Telemetry admit from ER CRISTINA HEADLEY admitted to Telemetry unit. Patient oriented to ANGLE THAKUR OCA, primary RN, unit, room, bed, and unit policies regarding patient care and visiting hours. Patient now on continuous telemetry monitoring, tele box #44 and telemetry reading on arrival to unit is sinus rhythm. Patient weighed by bedscale and encouraged to call if they need something. All questions and concerns addressed, patient verbalized understanding. Bed in lowest locked position, call light within reach, side rails up x2. Will continue to monitor Q1hr and PRN.
--- NOTE | 2019-03-21 03:05 | NUR ---
MRSA screen collected and sent to lab.
[2019-03-21] MEDS ORDERED: FUROSEMIDE 40 MG/4 ML VIAL IV SCH ×2 (06:00→08:00)
--- NOTE | 2019-03-21 07:15 | NUR ---
Opening Shift Note Received report and assumed care of patient, awake and alert. No S/S of distress/SOB or pain. Instructed on POC,nursing routines,to keep NPO for gall Bladder US,call light within reach instructed to call for assistance and PRN, will continue to monitor for changes Q1hr and PRN.
[2019-03-21] MEDS ORDERED: BENAZEPRIL HCL 10 MG TAB PO SCH (10:00)
[2019-03-21] MEDS ORDERED: LEVOFLOXACIN 500MG 100 ML IV SCH (10:00)
[2019-03-21] MEDS: ASPirin 81 mg TAB PO SCH (10:31)
[2019-03-21] MEDS: CARVEDILOL 3.125 MG TAB PO SCH ×2 (10:32→21:43)
[2019-03-21] MEDS: FAMOTIDINE 20 MG TAB PO SCH ×2 (10:33→21:42)
[2019-03-21] MEDS ORDERED: ALBUTEROL SULF 2.5 MG/0.5ML(0.5%) NEB SOLN NEB PRN (12:45)
[2019-03-21] MEDS ORDERED: IPRATROPIUM BROM 0.5 MG/2.5ML INH SOL NEB PRN (12:45)
--- NOTE | 2019-03-21 14:35 | NUR ---
AMA TO SMOKE SIGNED BY PATIENT,PATIENT INFORMED RISK THAT MAY OCCUR WHILE OUT OF UNIT,DELAYED OF TREATMENTS THAT THE FACILITY OR ITS EMPLOYEES AND PHYSICIAN ARE NOT RESPONSIBLE FOR ANY RISK AND OR COMPLICATION THAT MAY ARISE. PATIENT VERBALIZED UNDERSTANDING.
[2019-03-21] MEDS ORDERED: ATOR40TA52 PO (17:12)
[2019-03-21] MEDS ORDERED: CARV6.2551 PO (17:12)
[2019-03-21] MEDS ORDERED: LISI10TA6 PO (17:12)
--- NOTE | 2019-03-21 17:13 | NUR ---
Home medication list called by patient mom,added to home medication list
[2019-03-21] MEDS: FUROSEMIDE 40 MG/4 ML VIAL IV SCH (18:30)
--- NOTE | 2019-03-21 18:31 | NUR ---
PT NOTIFIES STAFF WHEN STEPPING OFF THE UNIT BRIEFLY. MAKES KNOWN WHEN HE RETURNS. IV FLUSHED AFTER MEDICATION. SITE RE TAPED. MADE SECURE. TAKES IN MEAL TRAY. NO COMPLAINTS. TWO URINALS AT BEDSIDE.
--- NOTE | 2019-03-21 19:06 | NUR ---
PRN MED NEB ASSESSMENT. PT DENIES SOB NO DISTRESS NOTED AT THIS TIME. RA POX 97% HR 74 RR 18. BS ARE CLEAR AND DIMINISHED. TX NOT GIVEN.
--- NOTE | 2019-03-21 19:27 | NUR ---
STATUS UNCHANGED NO DISTRESS NO DISCOMFORT,REPORT GIVEN TO INCOMING NOC SHIFT RN.
--- NOTE | 2019-03-21 19:50 | NUR ---
Opening Shift Note Assumed care of patient, awake and alert. No S/S of distress/SOB or pain. Instructed on POC and to call for assist PRN. Bed in lowest locked position, call light within reach, side rails up x2. Will continue to monitor for changes Q1hr and PRN.
[2019-03-21] MEDS ORDERED: ATORVASTATIN 20 MG TAB PO SCH (22:00)
[2019-03-21 22:45] LABS: Urine Bacteria NONE SEEN /hpf (None Seen); Urine Blood Negative /uL (Negative); Urine Mucus FEW (None Seen); Urine Specific Gravity 1.008 (1.001-1.035); Urine WBC 1 /hpf (0 - 3)
[2019-03-22 02:51] VITALS: BP 128/70
[2019-03-22 05:00] VITALS: BP 99/67
[2019-03-22] MEDS: FUROSEMIDE 40 MG/4 ML VIAL IV SCH (06:17)
[2019-03-22 06:38] LABS: Basophils # (auto) 0.1 uL; Basophils % (auto) 1.3 % (0.0-2.0); Eosinophils # (auto) 0.2 uL; Eosinophils % (auto) 3.7 % (0.0-7.0); Hematocrit 44.5 % (41.0-53.0); Hemoglobin 14.8 g/dL (13.5-17.5); Lymphocytes % (auto) 43.7 % (10.0-50.0); Mean Corpuscular Hemoglobin 27.8 pg (28.0-32.0); Mean Corpuscular Hgb Conc. 33.2 g/dL (32.0-36.0); Mean Corpuscular Volume 83.7 fL (80.0-100.0); Monocytes # (auto) 0.5 uL; Neutrophils # (auto) 1.8 uL; Neutrophils % (auto) 39.3 % (37.0-80.0); Nucleated Red Blood Cells % 0.1 %; Platelet Count (auto) 190 10^3/uL (140-450); Red Blood Cells 5.32 10^6/uL (4.5-5.90); Red Cell Distribution Width 15.6 % (11.8-14.3); White Blood Cell 4.5 10^3/uL (4.4-10.8)
[2019-03-22 06:49] LABS: BUN/Creatinine Ratio 17.5; Calcium 8.8 mg/dL (8.5-10.1); Magnesium 2.1 mg/dL (1.6-2.6); Potassium 4.4 mmol/L (3.5-5.1)
--- NOTE | 2019-03-22 06:50 | NUR ---
Patient out to smoke CRISTINA HEADLEY states they want to leave the floor Against Medical Advice (AMA) to go outside and smoke. Patient encouraged to stay on floor and not smoke. Patient advised of the risks and benefits of leaving AMA. Instructed patient to be back on the floor in 20 minutes. Patient verbalized understanding.
--- NOTE | 2019-03-22 07:40 | NUR ---
Respiratory note: Assessed pt for prn medneb tx. HR 64, RR 18, POX 99% on room air. Breath sounds clear/diminished throughout. No s/s of respiratory distress noted. Medneb tx not indicated at this time. Advised pt to call for RT if needed.
--- NOTE | 2019-03-22 08:00 | NUR ---
PT OBSERVED RETURNING FROM OUTSIDE BREAK. AMBULATES WELL. STAFF HERE TO TAKE FOR HIDA SCAN. PHYSICAL ASSESSMENT COMPLETED. IV HEPLOCK IN PLACE. NO SWELLING TO LOWER EXTREMITIES. DENIES DISCOMFORT. STATES HAS LOOKED OVER PRINT OUT PROVIDED YESTERDAY EXPLAINING HIDA SCAN HAS NO QUESTIONS. PLEASANT AND COOPERATIVE
[2019-03-22 09:00] VITALS: BP 115/75
--- NOTE | 2019-03-22 09:26 | NUR ---
RETURNS TO UNIT. BREAKFAST PROVIDED.
[2019-03-22] MEDS: ASPirin 81 mg TAB PO SCH (09:45)
[2019-03-22] MEDS: CARVEDILOL 3.125 MG TAB PO SCH (09:46)
[2019-03-22] MEDS: FAMOTIDINE 20 MG TAB PO SCH (09:46)
--- NOTE | 2019-03-22 10:53 | NUR ---
MD CONTRERAS. ASKS FOR UPDATE CURRENT HOME MED LIST. PT STATES FAMILY MEMBER COMING IN TO BRING ALL OF HIS CURRENT HOME MEDS. PREPARING FOR DC HOME.
[2019-03-22 13:00] VITALS: BP 116/84
[2019-03-22] MEDS ORDERED: BEN10T GT (13:36)
[2019-03-22] MEDS ORDERED: FURO1TAB31 PO (13:52)
[2019-03-22] MEDS ORDERED: CAR3125T PO (13:52)
[2019-03-22] MEDS ORDERED: SACU1TAB PO (13:52)
[2019-03-22] MEDS ORDERED: ATOR40TA52 PO (14:10)
[2019-03-22 15:37] VITALS: BP 99/67
[2019-03-22] MEDS ORDERED: SACUBITRIL-VALSARTAN 24mg/26mg TAB PO SCH (22:00)
== END 2019-03-22 16:15 | disposition home or self-care (01) | DRG 194 ==
LOC: ER 19:56 → TELE 19:57 → TELE-CENTR 03-21 03:03
PROVIDERS: ADMIT Nurse Practitioner; ATTEND Internal Medicine
DX: I11.0 Hypertensive heart disease with heart failure (principal); I27.20 Pulmonary hypertension, unspecified; I42.0 Dilated cardiomyopathy; K81.9 Cholecystitis, unspecified; I50.23 Acute on chronic systolic (congestive) heart failure; I25.2 Old myocardial infarction; E78.5 Hyperlipidemia, unspecified; J44.9 Chronic obstructive pulmonary disease, unspecified; I34.0 Nonrheumatic mitral (valve) insufficiency; K40.90 Unilateral inguinal hernia, without obstruction or gangrene, not specified as recurrent; K57.30 Diverticulosis of large intestine without perforation or abscess without bleeding; N40.0 Benign prostatic hyperplasia without lower urinary tract symptoms; Z91.19 Patient's noncompliance with other medical treatment and regimen; Z95.810 Presence of automatic (implantable) cardiac defibrillator; Z71.6 Tobacco abuse counseling; Z81.4 Family history of other substance abuse and dependence; Z79.899 Other long term (current) drug therapy
CPT/HCPCS: 36415; 71045; 74176; 76705; 78226; 80048; 80053; 80061; 80307; 81001; 83605; 83690; 83735; 83880; 84484; 85025; 87040; 87081; 93005; G0378; J1956; J2405

== ENCOUNTER 2019-04-13 18:22 | Inpatient (IN) | payer MEDICAID ==
[~2019-04-13] VITALS: Ht 193 cm; Wt 96.7 kg
[~2019-04-13 18:22] MED LIST changes: +ATOR40TA52 PO; +CAR3125T PO; -CEPH500C PO; +FURO1TAB31 PO; -MET500T GT; +SACU1TAB PO
[2019-04-13 19:56] LABS: Basophils # (auto) 0 uL; Eosinophils # (auto) 0.1 uL; Monocytes # (auto) 0.4 uL; Monocytes % (auto) 8.5 % (0.0-12.0); Neutrophils # (auto) 1.9 uL; Nucleated Red Blood Cells % 0.1 %
[2019-04-13 19:58] LABS: INR 1.08 (0.9-1.15); Partial Thromboplastin Time 27.1 sec (23.64-32.05)
[2019-04-13 19:59] LABS: Basophils % (auto) 1.1 % (0.0-2.0); Eosinophils % (auto) 3.2 % (0.0-7.0); Hematocrit 40.2 % (41.0-53.0); Hemoglobin 13.2 g/dL (13.5-17.5); Lymphocytes # (auto) 1.9 uL; Lymphocytes % (auto) 44.5 % (10.0-50.0); Mean Corpuscular Hemoglobin 27.2 pg (28.0-32.0); Mean Corpuscular Hgb Conc. 32.7 g/dL (32.0-36.0); Neutrophils % (auto) 42.7 % (37.0-80.0); Platelet Count (auto) 192 10^3/uL (140-450); Red Blood Cells 4.85 10^6/uL (4.5-5.90); Red Cell Distribution Width 14.9 % (11.8-14.3); White Blood Cell 4.3 10^3/uL (4.4-10.8)
[2019-04-13 20:00] LABS: Albumin 3.2 g/dL (3.4-5.0); BUN/Creatinine Ratio 12.7; Calcium 8.3 mg/dL (8.5-10.1); Magnesium 2.1 mg/dL (1.6-2.6); Potassium 4.1 mmol/L (3.5-5.1)
[2019-04-13 20:09] LABS: Bilirubin, Total 0.2 mg/dL (0.2-1.0); Total Protein 7.1 g/dL (6.4-8.2)
[2019-04-13] MEDS ORDERED: FUROSEMIDE 40 MG/4 ML VIAL IV ONE (22:45)
[2019-04-14] MEDS ORDERED: NITROGLYCERIN 0.4 MG SL TAB SL PRN (03:00)
[2019-04-14] MEDS ORDERED: TEMAZEPAM 15 MG CAP PO PRN (03:00)
[2019-04-14] MEDS ORDERED: ONDANSETRON HCL 4 MG/2 ML VIAL IV PRN (03:00)
[2019-04-14] MEDS ORDERED: DEXTROSE (50%) 50ML SYRG IV PRN (03:00)
[2019-04-14] MEDS ORDERED: MORPHINE SULF INJ 2 MG/ML SYRINGE 1ML IV PRN (03:00)
[2019-04-14] MEDS ORDERED: HYDROcodone-ACET 5/325MG TAB PO PRN (03:00)
[2019-04-14] MEDS ORDERED: ACETAMINOPHEN 325 MG TAB PO PRN (03:00)
[2019-04-14] MEDS ORDERED: MORPHINE SULFATE 4 MG/ML SYR/VIAL IV PRN (03:00)
--- NOTE | 2019-04-14 03:44 | NUR ---
Telemetry admit from ER CRISTINA HEADLEY admitted to Telemetry unit after NO SBAR WAS received. Patient oriented to SNOW ABRAMS RN primary RN, unit, room, bed, and unit policies regarding patient care and visiting hours. Patient now on continuous telemetry monitoring, tele box # 67 and telemetry reading on arrival to unit is sinus rhythm. Patient weighed by bed scale and encouraged to call if they need something. All questions and concerns addressed, patient verbalized understanding. Patient is A/O x4, ambulatory, skin is intact, IV to the RAC 18g saline locked, on RA, no complaints of pain, SOB, or distress. He states he had a heart cath one week ago to assess his heart at [facility] and not a CABG which was previously stated. Call light is within reach, side rails up x2, bed is in lowest position. Will round and monitor hourly and as needed.
[2019-04-14] MEDS: InsuLIN REG 1unit/0.01ml Soln (100units/ml) SC SCH ×4 (04:00→16:00)
--- NOTE | 2019-04-14 04:00 | NUR ---
Medication Reconciliation Patient stated his mother will bring a complete list of the medications he takes at home today when she visits.
[2019-04-14 05:00] VITALS: BP 103/74
[2019-04-14] MEDS: ACCU-CHEK COMFORT CURVE STRIP VI SCH ×4 (05:00→16:00)
--- NOTE | 2019-04-14 05:00 | NUR ---
MRSA nares sent to lab via bullet system.
--- NOTE | 2019-04-14 07:00 | NUR ---
OPENING NOTE ASSUMED CARE PATIENT IN BED, UNLABORED, EVEN BREATHING. INSTRUCTED PT TO CALL FOR ASSISTANCE NEEDED, PT ALSO WAS INSTRUCTED BY NURSE TO COME BACK FROM SMOKING BRAKE BEFORE THE 30 MIN THAO, PATIENT VERBALIZE UNDERSTANDING, AND SIGNED AMA FORM. CALL LIGHT WITH IN REACH, BED IN LOWEST POSITION. PT VERBALIZED POC EXPLAINED BY NURSE.
--- NOTE | 2019-04-14 07:28 | NUR ---
Informed consent for smoking signed by patient and this RN; placed in hard chart. Safety education and smoking cessation education provided to patient. Patient verbalized understanding. Respirations even and unlabored, no distress noted. Patient ambulating with a steady gait.
--- NOTE | 2019-04-14 07:43 | NUR ---
Endorsed care to Ju KING.
--- NOTE | 2019-04-14 07:44 | NUR ---
Assumed care of patient Patient resting in bed with even and unlabored respirations, no distress noted. Instructed patient on POC, fall precautions and to call for assistance as needed. Patient verbalized understanding. Fall precautions in place with bed in lowest locked position with call light within reach. Will continue to monitor q1hr & PRN. Orienting CHRISTINE Boogie.
--- NOTE | 2019-04-14 08:00 | NUR ---
REFUSED INSULIN ACCU CHECK PERFORMED, PATIENT STATED "IM NOT DIABETIC" INSULIN COVERAGE WAS REFUSED BY PATIENT, STATING " IM NOT IN INSULIN"
[2019-04-14 09:09] VITALS: BP 109/79
--- NOTE | 2019-04-14 09:53 | NUR ---
POC discussed with Dr. Wells Orders received and read back to confirm.
[2019-04-14] MEDS ORDERED: PANT40TA2 PO (09:56)
[2019-04-14] MEDS ORDERED: FURO1TAB33 PO (09:56)
[2019-04-14] MEDS ORDERED: SPIR25TA88 PO ×2 (09:56→15:06)
[2019-04-14] MEDS ORDERED: LISI2.5T47 PO (09:56)
--- NOTE | 2019-04-14 09:57 | NUR ---
Patient's home medications updated in med rec Patient's step-father brought patient's home medications to bedside. Home medications returned to the patient's step-father. Instructed patient to have his step-father to take medications back home. Patient verbalized understanding.
[2019-04-14] MEDS ORDERED: LISINOPRIL 5 MG TAB PO SCH (10:00)
[2019-04-14] MEDS ORDERED: PANTOPRAZOLE 40 MG TAB PO SCH (10:00)
[2019-04-14] MEDS ORDERED: ASPirin-EC 325mg tab PO SCH (10:00)
[2019-04-14] MEDS ORDERED: SACUBITRIL-VALSARTAN 24mg/26mg TAB PO SCH (10:00)
[2019-04-14] MEDS ORDERED: SPIRONOLACTONE 25 MG TAB PO SCH (10:00)
[2019-04-14] MEDS ORDERED: CARVEDILOL 3.125 MG TAB PO SCH (10:00)
--- NOTE | 2019-04-14 10:00 | NUR ---
DR JAKI POLLACK REVIEWED PATIENT'S MEDICATIONS, NEW ORDERS CARRIED OUT. EXPLAINED TO PATIENT POC, PT VERBALIZED UNDERSTANDING. MEDICATIONS GIVEN TO PT. CALL LIGHT WITH IN REACH, BED IN LOWEST POSITION.
[2019-04-14] MEDS ORDERED: FUROSEMIDE 20 MG TAB PO ONE (10:30)
--- NOTE | 2019-04-14 12:00 | NUR ---
PATIENT REFUSED 1200 ACCU CHECK
[2019-04-14 12:58] VITALS: BP 116/74
[2019-04-14] MEDS ORDERED: FUR20T PO (15:06)
[2019-04-14] MEDS ORDERED: LISI-275 PO (15:06)
[2019-04-14] MEDS ORDERED: ATOR20TA50 PO (15:06)
[2019-04-14] MEDS ORDERED: ASP81EC PO (15:06)
[2019-04-14] MEDS ORDERED: CAR3125T PO (15:06)
[2019-04-14] MEDS ORDERED: ACE325T PO (15:06)
[2019-04-14] MEDS ORDERED: PANT40T PO (15:06)
[2019-04-14 15:39] VITALS: BP 104/46
[2019-04-14 16:58] VITALS: BP 115/75
--- NOTE | 2019-04-14 17:20 | NUR ---
DISCHARGE PATIENT WAS DISCHARGE, ALL INFORMATION IN THE PACKAGE WAS EXPLAINED, REGARDING CONTINUE OF CARE AND FOLLOW UPS WITH [facility]. IV WAS DISCONTINUE FROM RIGHT A/C, INSEMINATION WORKER REMOVED AND SENT TO ICU. PATIENT IS STABLE, ABLE TO WALK, UNLABORED BREATHING. DENIES SOB, OR DISCOMFORT. PATIENT VERBALIZED UNDERSTANDING OF DISCHARGE INSTRUCTIONS. PATIENT LEFT WITH FAMILY MEMBER, TOOK WITH HIM ALL HIS BELONGING INCLUDING HOME MEDICATIONS. STATED THAT HAD NO FURTHER QUESTIONS.
[2019-04-14] MEDS ORDERED: FUROSEMIDE 20 MG TAB PO SCH (18:00)
[2019-04-14] MEDS ORDERED: ATORVASTATIN 20 MG TAB PO SCH (22:00)
[2019-04-15] MEDS ORDERED: ASPirin-EC 81 mg tab PO SCH (10:30)
== END 2019-04-14 17:20 | disposition home or self-care (01) | DRG 190 ==
LOC: ER 18:22 → TELE 18:23 → TELE-WESTW 04-14 03:44
PROVIDERS: ADMIT Hospitalist; ATTEND Hospitalist
DX: I21.4 Non-ST elevation (NSTEMI) myocardial infarction (principal); I50.23 Acute on chronic systolic (congestive) heart failure; E44.0 Moderate protein-calorie malnutrition; E11.9 Type 2 diabetes mellitus without complications; I42.8 Other cardiomyopathies; I11.0 Hypertensive heart disease with heart failure; F17.210 Nicotine dependence, cigarettes, uncomplicated; J45.909 Unspecified asthma, uncomplicated; K29.00 Acute gastritis without bleeding; F14.10 Cocaine abuse, uncomplicated; I25.10 Atherosclerotic heart disease of native coronary artery without angina pectoris; I50.82 Biventricular heart failure; Z68.25 Body mass index [BMI] 25.0-25.9, adult; Z95.0 Presence of cardiac pacemaker; Z95.1 Presence of aortocoronary bypass graft; I25.2 Old myocardial infarction
CPT/HCPCS: 36415; 71045; 80053; 80320; 82962; 83735; 83880; 84484; 85025; 85379; 85610; 85730; 87081; 93005; 96374; G0378

== ENCOUNTER 2019-09-02 20:04 | Emergency (ER) | payer MEDICAID ==
[~2019-09-02 20:04] MED LIST changes: +ACE325T PO; +ASP81EC PO; -ASPI325T25 PO; +ATOR20TA50 PO; -ATOR40TA52 PO; -DIAZ10TA3 PO; -DIPH2.5T16 PO; +FUR20T PO; -FURO1TAB31 PO; -IBUP800T24 PO; +LISI-275 PO; -OMEP20TA PO; +PANT40T PO; -SACU1TAB PO; +SPIR25TA88 PO
[2019-09-02] MEDS ORDERED: ONDANSETRON HCL 4 MG/2 ML VIAL IV ONE (20:15)
[2019-09-02] MEDS: MORPHINE SULFATE 4 MG/ML SYR/VIAL IV ONE ×2 (20:15→21:15)
[2019-09-02] MEDS ORDERED: IOHEXOL 300 MG/ML 100ML BOTTLE IJ ONE (20:40)
[2019-09-02 21:00] VITALS: BP 110/78
[2019-09-02 21:16] LABS: Basophils # (auto) 0 10 ^3/uL (0-0.2); Basophils % (auto) 1.1 % (0.0-2.0); Eosinophils # (auto) 0.1 10 ^3/uL (0-0.8); Eosinophils % (auto) 2.4 % (0.0-7.0); Hemoglobin 14.6 g/dL (13.5-17.5); Lymphocytes # (auto) 1.4 10 ^3/uL (0.4-5.4); Lymphocytes % (auto) 33.9 % (10.0-50.0); Mean Corpuscular Hemoglobin 27.1 pg (28.0-32.0); Mean Corpuscular Hgb Conc. 33.1 g/dL (32.0-36.0); Mean Corpuscular Volume 81.6 fL (80.0-100.0); Monocytes # (auto) 0.4 10 ^3/uL (0-1.3); Monocytes % (auto) 10.1 % (0.0-12.0); Neutrophils # (auto) 2.2 10 ^3/uL (1.6-8.6); Neutrophils % (auto) 52.5 % (37.0-80.0); Nucleated Red Blood Cells % 0.2 %; Platelet Count (auto) 135 10^3/uL (140-450); Red Blood Cells 5.39 10^6/uL (4.5-5.90); Red Cell Distribution Width 18.8 % (11.8-14.3); White Blood Cell 4.1 10^3/uL (4.4-10.8)
[2019-09-02 21:40] LABS: Albumin 3.7 g/dL (3.4-5.0); Amylase 65 U/L (25-115); Anion Gap 5 (5-15); Blood Urea Nitrogen 11 mg/dL (7-18); Calcium 8.4 mg/dL (8.5-10.1); Carbon Dioxide 27 mmol/L (21-32); Chloride 109 mmol/L (98-107); Glucose 129 mg/dL (74-106); INR 1.06 (0.9-1.15); Lipase 190 U/L (73-393); Magnesium 2.3 mg/dL (1.6-2.6); Partial Thromboplastin Time 25.6 sec (23.64-32.05); Potassium 4.3 mmol/L (3.5-5.1); Sodium 141 mmol/L (136-145)
[2019-09-02 21:46] LABS: Alanine Aminotransferase 113 U/L (16-61); Alkaline Phosphatase 136 U/L (45-117); Aspartate Aminotransferase 91 U/L (15-37); BUN/Creatinine Ratio 8.9; Bilirubin, Total 0.5 mg/dL (0.2-1.0); GFR African American 77 mL/min; GFR Non-African American 63 mL/min; Total Protein 7.6 g/dL (6.4-8.2)
[2019-09-02] MEDS ORDERED: MORPHINE SULFATE 4 MG/ML SYR/VIAL IV ONE (23:45)
== END 2019-09-03 00:26 | disposition home or self-care (01) ==
LOC: ER 20:04 → EDBD 20:04 → ER 09-03 00:26
DX: E72.20 Disorder of urea cycle metabolism, unspecified (principal); K75.9 Inflammatory liver disease, unspecified; R16.1 Splenomegaly, not elsewhere classified; F17.210 Nicotine dependence, cigarettes, uncomplicated; E11.9 Type 2 diabetes mellitus without complications; I10 Essential (primary) hypertension; J45.909 Unspecified asthma, uncomplicated; I25.2 Old myocardial infarction; Z95.0 Presence of cardiac pacemaker
CPT/HCPCS: 36415; 74177; 76705; 80053; 80320; 82140; 82150; 83605; 83690; 83735; 84484; 85025; 85610; 85730; 93005; 96374; 96375; 96376; 99285; J2270; J2405; Q9967

== ENCOUNTER 2019-09-27 17:13 | Inpatient (IN) | payer MEDICAID ==
[~2019-09-27] VITALS: Ht 193 cm; Wt 107.7 kg
[2019-09-27] MEDS ORDERED: MORPHINE SULFATE 4 MG/ML SYR/VIAL IV ONE (17:30)
[2019-09-27] MEDS ORDERED: ONDANSETRON HCL 4 MG/2 ML VIAL IV ONE (17:30)
[2019-09-27 17:55] LABS: Eosinophils # (auto) 0.1 10 ^3/uL (0-0.8); Hemoglobin 14.3 g/dL (13.5-17.5); Nucleated Red Blood Cells % 0.1 %
[2019-09-27 17:57] LABS: Basophils # (auto) 0.1 10 ^3/uL (0-0.2); Basophils % (auto) 1.6 % (0.0-2.0); Eosinophils % (auto) 2.2 % (0.0-7.0); Hematocrit 44.1 % (41.0-53.0); Lymphocytes % (auto) 43.6 % (10.0-50.0); Mean Corpuscular Hemoglobin 25.9 pg (28.0-32.0); Mean Corpuscular Hgb Conc. 32.4 g/dL (32.0-36.0); Mean Corpuscular Volume 79.7 fL (80.0-100.0); Monocytes # (auto) 0.7 10 ^3/uL (0-1.3); Monocytes % (auto) 14.5 % (0.0-12.0); Neutrophils # (auto) 1.7 10 ^3/uL (1.6-8.6); Neutrophils % (auto) 38.1 % (37.0-80.0); Platelet Count (auto) 193 10^3/uL (140-450); Red Blood Cells 5.53 10^6/uL (4.5-5.90); Red Cell Distribution Width 18.8 % (11.8-14.3); White Blood Cell 4.5 10^3/uL (4.4-10.8)
[2019-09-27 18:10] LABS: INR 1.13 (0.9-1.15); Partial Thromboplastin Time 25.7 sec (23.64-32.05)
[2019-09-27 18:11] LABS: Albumin 3.3 g/dL (3.4-5.0); Anion Gap 6 (5-15); BUN/Creatinine Ratio 13.6; Blood Urea Nitrogen 16 mg/dL (7-18); Calcium 8.4 mg/dL (8.5-10.1); Carbon Dioxide 24 mmol/L (21-32); Chloride 107 mmol/L (98-107); GFR African American 81 mL/min; GFR Non-African American 67 mL/min; Glucose 135 mg/dL (74-106); Lipase 238 U/L (73-393); Potassium 4.6 mmol/L (3.5-5.1); Sodium 137 mmol/L (136-145)
[2019-09-27 18:14] LABS: Alanine Aminotransferase 105 U/L (16-61); Alkaline Phosphatase 149 U/L (45-117); Aspartate Aminotransferase 50 U/L (15-37); Bilirubin, Total 0.7 mg/dL (0.2-1.0); Total Protein 7.5 g/dL (6.4-8.2)
[2019-09-27] MEDS ORDERED: SODIUM CHLORIDE 0.9% 1,000 ML IV SCH (19:16)
[2019-09-27] MEDS ORDERED: FUROSEMIDE 100 MG/10ML VIAL IV ONE ×3 (19:30→22:00)
[2019-09-27] MEDS ORDERED: ONDANSETRON HCL 4 MG/2 ML VIAL IV PRN (19:30)
[2019-09-27] MEDS ORDERED: NITROGLYCERIN 0.4 MG SL TAB SL PRN ×2 (19:30)
[2019-09-27] MEDS ORDERED: MORPHINE SULF INJ 2 MG/ML SYRINGE 1ML IV PRN (19:30)
[2019-09-27] MEDS ORDERED: LORazepam 0.5 MG TAB PO PRN (19:30)
[2019-09-27] MEDS ORDERED: FUROSEMIDE 40 MG/4 ML VIAL IV ONE (20:00)
[2019-09-27 20:10] VITALS: BP 108/85
[2019-09-27] MEDS: ATORVASTATIN 20 MG TAB PO SCH (22:08)
[2019-09-27 22:27] VITALS: BP 108/85
[2019-09-27] MEDS: CARVEDILOL 3.125 MG TAB PO SCH (22:56)
[2019-09-27] MEDS: MORPHINE SULF INJ 2 MG/ML SYRINGE 1ML IV PRN (23:28)
[2019-09-28] VITALS (7 sets, daily range): BP systolic 100–145; BP diastolic 65–86
[2019-09-28] MEDS ORDERED: GABA300C10 PO (01:48)
[2019-09-28] MEDS ORDERED: OMEP20TA PO (01:48)
[2019-09-28] MEDS ORDERED: POTA-220 PO (01:48)
[2019-09-28 05:41] LABS: Basophils # (auto) 0.1 10 ^3/uL (0-0.2); Basophils % (auto) 2.4 % (0.0-2.0); Eosinophils # (auto) 0.1 10 ^3/uL (0-0.8); Eosinophils % (auto) 2.1 % (0.0-7.0); Hematocrit 44.9 % (41.0-53.0); Hemoglobin 14.7 g/dL (13.5-17.5); Lymphocytes # (auto) 2.4 10 ^3/uL (0.4-5.4); Lymphocytes % (auto) 46.4 % (10.0-50.0); Mean Corpuscular Hemoglobin 26.2 pg (28.0-32.0); Mean Corpuscular Hgb Conc. 32.8 g/dL (32.0-36.0); Mean Corpuscular Volume 79.9 fL (80.0-100.0); Monocytes # (auto) 0.7 10 ^3/uL (0-1.3); Monocytes % (auto) 13.3 % (0.0-12.0); Neutrophils # (auto) 1.8 10 ^3/uL (1.6-8.6); Neutrophils % (auto) 35.8 % (37.0-80.0); Nucleated Red Blood Cells % 0.2 %; Platelet Count (auto) 184 10^3/uL (140-450); Red Blood Cells 5.62 10^6/uL (4.5-5.90); Red Cell Distribution Width 18.4 % (11.8-14.3); White Blood Cell 5.2 10^3/uL (4.4-10.8)
[2019-09-28 05:53] LABS: INR 1.13 (0.9-1.15); Partial Thromboplastin Time 25.4 sec (23.64-32.05)
[2019-09-28 05:59] LABS: Albumin 3.7 g/dL (3.4-5.0); Magnesium 2.4 mg/dL (1.6-2.6); Potassium 4.3 mmol/L (3.5-5.1)
[2019-09-28] MEDS: FUROSEMIDE 100 MG/10ML VIAL IV SCH ×2 (06:00→18:19)
[2019-09-28 06:03] LABS: BUN/Creatinine Ratio 14.5; Bilirubin, Total 0.6 mg/dL (0.2-1.0); Phosphorus 3.6 mg/dL (2.5-4.90); Total Protein 7.8 g/dL (6.4-8.2)
[2019-09-28] MEDS: CARVEDILOL 3.125 MG TAB PO SCH ×2 (07:59→18:19)
[2019-09-28] MEDS: DOCUSATE SOD 100 MG CAP PO SCH (09:54)
[2019-09-28] MEDS: ASPirin-EC 81 mg tab PO SCH (09:54)
[2019-09-28] MEDS: PANTOPRAZOLE 40 MG TAB PO SCH (09:54)
[2019-09-28] MEDS: LISINOPRIL 5 MG TAB PO SCH (09:55)
[2019-09-28] MEDS ORDERED: SPIRONOLACTONE 25 MG TAB PO SCH (10:00)
[2019-09-28] MEDS ORDERED: ENOXAPARIN SOD 40 MG/0.4 ML SYRINGE SC SCH (10:00)
[2019-09-28] MEDS ORDERED: SPIRONOLACTONE 25 MG TAB PO ONE (12:15)
[2019-09-28] MEDS: MORPHINE SULF INJ 2 MG/ML SYRINGE 1ML IV PRN (17:56)
[2019-09-28 20:07] LABS: Alcohol, Urine < 3.0 mg/dL (0-5); Amphetamine Screen, Urine NEGATIVE (NEGATIVE); Barbiturate Scree,Urine NEGATIVE (NEGATIVE); Benzodiazephine Screen, Urine NEGATIVE (NEGATIVE); Cannabinoid Screen, Urine NEGATIVE (NEGATIVE); Cocaine Screen, Urine NEGATIVE (NEGATIVE); Opiate Scree,Urine NEGATIVE (NEGATIVE); Phencyclidine Screen, Urine NEGATIVE (NEGATIVE)
[2019-09-28] MEDS: ATORVASTATIN 20 MG TAB PO SCH (21:35)
[2019-09-29 05:00] VITALS: BP 100/65
[2019-09-29] MEDS: FUROSEMIDE 100 MG/10ML VIAL IV SCH (05:45)
[2019-09-29 06:21] LABS: Calcium 8.6 mg/dL (8.5-10.1); Potassium 4.2 mmol/L (3.5-5.1)
[2019-09-29 06:26] LABS: Albumin 3.4 g/dL (3.4-5.0); BUN/Creatinine Ratio 16.7; Bilirubin, Total 0.5 mg/dL (0.2-1.0); Total Protein 7.2 g/dL (6.4-8.2)
[2019-09-29 08:00] VITALS: BP 103/68
[2019-09-29 09:00] VITALS: BP 103/68
[2019-09-29] MEDS: CARVEDILOL 3.125 MG TAB PO SCH (09:12)
[2019-09-29] MEDS ORDERED: SPIRONOLACTONE 25 MG TAB PO SCH (10:00)
[2019-09-29] MEDS: LISINOPRIL 5 MG TAB PO SCH (10:00)
[2019-09-29] MEDS: PANTOPRAZOLE 40 MG TAB PO SCH (10:05)
[2019-09-29] MEDS: ASPirin-EC 81 mg tab PO SCH (10:05)
[2019-09-29] MEDS: DOCUSATE SOD 100 MG CAP PO SCH (10:05)
[2019-09-29 12:56] VITALS: BP 109/66
[2019-09-29 13:00] VITALS: BP 109/66
== END 2019-09-29 13:40 | disposition home or self-care (01) | DRG 194 ==
LOC: ER 17:13 → TELE-CENTR 17:14 → TELE-EAST 09-29 08:54
PROVIDERS: ADMIT Hospitalist; ATTEND Internal Medicine
DX: I11.0 Hypertensive heart disease with heart failure (principal); I21.A1 Myocardial infarction type 2; I27.20 Pulmonary hypertension, unspecified; I50.43 Acute on chronic combined systolic (congestive) and diastolic (congestive) heart failure; E44.0 Moderate protein-calorie malnutrition; I42.0 Dilated cardiomyopathy; K29.70 Gastritis, unspecified, without bleeding; E86.0 Dehydration; K74.60 Unspecified cirrhosis of liver; K21.9 Gastro-esophageal reflux disease without esophagitis; E11.9 Type 2 diabetes mellitus without complications; J44.9 Chronic obstructive pulmonary disease, unspecified; E78.5 Hyperlipidemia, unspecified; F17.210 Nicotine dependence, cigarettes, uncomplicated; I25.10 Atherosclerotic heart disease of native coronary artery without angina pectoris; Z91.14 Patient's other noncompliance with medication regimen; Z68.28 Body mass index [BMI] 28.0-28.9, adult; Z95.1 Presence of aortocoronary bypass graft; Z95.810 Presence of automatic (implantable) cardiac defibrillator; Z79.899 Other long term (current) drug therapy; I50.82 Biventricular heart failure
CPT/HCPCS: 36415; 71045; 74176; 80053; 80307; 83690; 83735; 83880; 84100; 84484; 85025; 85610; 85730; 87081; 93005; 93306; 96374; 96375; 99291; G0378; J2405

== ENCOUNTER 2020-06-01 09:04 | Emergency (ER) | payer MEDICAID ==
[~2020-06-01] VITALS: Ht 193 cm; Wt 117.9 kg
[~2020-06-01 09:04] MED LIST changes: -ASP81EC PO; +ASPI-394 PO; +GABA300C10 PO; +OMEP20TA PO; +POTA-220 PO
[2020-06-01] MEDS ORDERED: SODIUM CHLORIDE 0.9% 1,000 ML IVB ONE (11:45)
[2020-06-01] MEDS ORDERED: MORPHINE SULFATE 4 MG/ML SYR/VIAL IV ONE (11:45)
[2020-06-01] MEDS ORDERED: fentaNYL CITRATE 100 MCG/2 ML VL IM ONE (12:45)
[2020-06-01 13:51] LABS: Basophils # (auto) 0 10 ^3/uL (0-0.2); Basophils % (auto) 0.9 % (0.0-2.0); Eosinophils # (auto) 0.1 10 ^3/uL (0-0.8); Eosinophils % (auto) 1.5 % (0.0-7.0); Hematocrit 35.3 % (41.0-53.0); Hemoglobin 11.9 g/dL (13.5-17.5); Lymphocytes # (auto) 1.5 10 ^3/uL (0.4-5.4); Lymphocytes % (auto) 32.7 % (10.0-50.0); Mean Corpuscular Hemoglobin 28.4 pg (28.0-32.0); Mean Corpuscular Hgb Conc. 33.8 g/dL (32.0-36.0); Mean Corpuscular Volume 84.2 fL (80.0-100.0); Monocytes # (auto) 0.7 10 ^3/uL (0-1.3); Neutrophils # (auto) 2.3 10 ^3/uL (1.6-8.6); Neutrophils % (auto) 48.9 % (37.0-80.0); Nucleated Red Blood Cells % 2.5 %; Platelet Count (auto) 143 10^3/uL (140-450); Red Blood Cells 4.19 10^6/uL (4.5-5.90); Red Cell Distribution Width 15.2 % (11.8-14.3); White Blood Cell 4.6 10^3/uL (4.4-10.8)
[2020-06-01 16:04] LABS: Potassium 4.6 mmol/L (3.5-5.1)
[2020-06-01 16:24] LABS: Albumin 3.7 g/dL (3.4-5.0); BUN/Creatinine Ratio 17.9; Bilirubin, Total 0.6 mg/dL (0.2-1.0); Calcium 7.9 mg/dL (8.5-10.1); Total Protein 7.4 g/dL (6.4-8.2)
[2020-06-01] MEDS ORDERED: IOHEXOL 300 MG/ML 100ML BOTTLE IJ ONE (16:43)
[2020-06-01 18:11] VITALS: BP 134/81
== END 2020-06-01 18:20 | disposition home or self-care (01) ==
LOC: ER 09:04 → EDBD 09:04 → ER 18:20
DX: K85.90 Acute pancreatitis without necrosis or infection, unspecified (principal); J45.909 Unspecified asthma, uncomplicated; E11.9 Type 2 diabetes mellitus without complications; I10 Essential (primary) hypertension; I25.2 Old myocardial infarction; F17.210 Nicotine dependence, cigarettes, uncomplicated
CPT/HCPCS: 36415; 74177; 80053; 82150; 83605; 83690; 83735; 84484; 85025; 96360; 96372; 99285; J3010; J7030; Q9967